=== PATIENT | female | born 1965 | race Caucasian/White ===

== ENCOUNTER 2017-02-06 19:02 | Observation (INO) | payer OTHER ==
--- NOTE | 2017-02-06 19:09 | EDPHY ---
H & P Time Seen by Provider: 02/06/17 19:08 HPI/ROS: Chief complaint. Dizziness, vertigo HPI. 51-year-old female with sudden onset of dizziness vertigo and trouble walking. She had blurry vision and some diaphoresis. This began after taking daughters doxycycline because she was sick. 2 hours later her brain felt weird and she developed the blurry vision. She then had diaphoresis nausea vomiting. Her dizziness is worse with standing or head movement. No similar symptoms previously. She recently found out she had high blood pressure at a health fair. No treatment for this so far. ROS Constitutional. Dizziness Eyes. Blurry vision ENT. no sore throat, no nasal drainage Cardiovascular. no chest pain Respiratory. no shortness of breath, no cough Abdominal. Nausea and vomiting . no problems urinating MS. no calf pain/swelling, no neck/back pain, no joint pain Skin. Diaphoresis Lymph. no swollen glands Neuro. Dizziness Past Medical/Surgical History: Untreated hypertension. Social History: Single, nonsmoker, 3-6 alcoholic beverages per day Physical Exam: General Appearance: Alert well-developed female moderate distress vital signs significant for blood pressure 215/115 Eyes: Pupils equal and round no pallor or injection. ENT, Mouth: Mucous membranes are moist. Respiratory: There are no retractions, lungs are clear to auscultation. Cardiovascular: Regular rate and rhythm. Gastrointestinal: Abdomen is soft and nontender, no masses, bowel sounds normal. Neurological: Awake and alert, sensory and motor exams grossly normal. Skin: Warm and dry, no rashes. Musculoskeletal: Neck is supple nontender. Extremities symmetrical, full range of motion. Psychiatric: Patient is oriented X 3, there is no agitation. Constitutional: Initial Vital Signs Temperature (C) 36.6 C 02/06/17 19:12 Heart Rate 88 02/06/17 19:12 Respiratory Rate 15 02/06/17 19:12 Blood Pressure 215/115 H 02/06/17 19:12 O2 Sat (%) 96 02/06/17 19:12 O2 Delivery Mode Room Air Allergies/Adverse Reactions: No Known Allergies Allergy (Unverified 02/06/17 19:14) Home Medications: Medication Instructions Recorded Doxycycline Monohydrate 150 mg PO DAILY 02/06/17 Medical Decision Making - Diagnostics EKG Interpretation: EKG interpreted by me shows normal sinus rhythm with normal interval and axis. QRS is normal there is no significant ST elevation or depression. No arrhythmia. Rate 73 Imaging Results: Imaging Impressions Chest X-Ray 02/06/17 19:27 IMPRESSION: No evidence for acute cardiopulmonary abnormality. Head CT 02/06/17 19:27 Impression: Question mild atrophy. No evidence for acute intracranial abnormality. Results called and discussed with Kraig Urbano M.D., on February 06, 2017 at 2047 hours. One-view chest x-ray interpreted by me is normal Procedures: IV normal saline, monitor. Zofran meclizine Intravenous labetalol. Oral Norvasc ED Course/Re-evaluation: 8:05 p.m. and blood pressure is 175/105 Re-evaluation 10:30 p.m. patient is not able to walk unassisted. She definitely fall risk. Her blood pressure currently is 158/102. I have consulted and discussed case with Dr. Ward, hospitalist, who agrees to the admission Differential Diagnosis: Uncontrolled hypertension. I considered intracranial bleeding. No evidence for acute coronary syndrome. - Data Points Laboratory Results: Laboratory Results 02/06/17 19:00 02/06/17 19:00 02/06/17 02/06/17 19:00 19:00 WBC 8.33 10^3/uL 10^3/uL (3.80-9.50) RBC 4.45 10^6/uL 10^6/uL (4.18-5.33) Hgb 14.2 g/dL g/dL (12.6-16.3) Hct 42.1 % % (38.0-47.0) MCV 94.6 fL fL (81.5-99.8) MCH 31.9 pg pg (27.9-34.1) MCHC 33.7 g/dL g/dL (32.4-36.7) RDW 11.6 % % (11.5-15.2) Plt Count 251 10^3/uL 10^3/uL (150-400) MPV 8.9 fL fL (8.7-11.7) Neut % (Auto) 86.9 % H % (39.3-74.2) Lymph % (Auto) 8.9 % L % (15.0-45.0) Russell % (Auto) 3.5 % L % (4.5-13.0) Eos % (Auto) 0.0 % L % (0.6-7.6) Baso % (Auto) 0.2 % L % (0.3-1.7) Nucleat RBC Rel Count 0.0 % % (0.0-0.2) Absolute Neuts (auto) 7.24 10^3/uL H 10^3/uL (1.70-6.50) Absolute Lymphs (auto) 0.74 10^3/uL L 10^3/uL (1.00-3.00) Absolute Monos (auto) 0.29 10^3/uL L 10^3/uL (0.30-0.80) Absolute Eos (auto) 0.00 10^3/uL L 10^3/uL (0.03-0.40) Absolute Basos (auto) 0.02 10^3/uL 10^3/uL (0.02-0.10) Absolute Nucleated RBC 0.00 10^3/uL 10^3/uL (0-0.01) Immature Gran % 0.5 % % (0.0-1.1) Immature Gran # 0.04 10^3/uL 10^3/uL (0.00-0.10) Sodium 139 mEq/L mEq/L (134-144) Potassium 3.8 mEq/L mEq/L (3.5-5.2) Chloride 100 mEq/L mEq/L (97-110) Carbon Dioxide 22 mEq/l mEq/l (22-31) Anion Gap 17 mEq/L H mEq/L (8-16) BUN 15 mg/dL mg/dL (7-23) Creatinine 0.7 mg/dL mg/dL (0.6-1.0) Estimated GFR > 60 Glucose 139 mg/dL H mg/dL (70-100) Calcium 9.8 mg/dL mg/dL (8.5-10.4) Total Bilirubin 0.9 mg/dL mg/dL (0.1-1.4) Conjugated Bilirubin 0.6 mg/dL H mg/dL (0.0-0.5) Unconjugated Bilirubin 0.3 mg/dL mg/dL (0.0-1.1) AST 36 IU/L IU/L (14-46) ALT 44 IU/L IU/L (9-52) Alkaline Phosphatase 67 IU/L IU/L (38-126) Troponin I < 0.012 ng/mL ng/mL (0-0.034) NT-Pro-B Natriuret Pep 102 pg/mL pg/mL (0-125) Total Protein 8.3 g/dL H g/dL (6.3-8.2) Albumin 5.1 g/dL H g/dL (3.5-5.0) Ethyl Alcohol < 10 mg/dL mg/dL (0-10) Medications Given: Discontinued Medications Amlodipine Besylate (Norvasc) 10 mg PO EDNOW ONE Stop: 02/06/17 20:53 Last Admin: 02/06/17 21:17 Dose: 10 mg Labetalol HCl (Labetalol Hcl) 20 mg IVP EDNOW ONE Stop: 02/06/17 19:29 Last Admin: 02/06/17 19:50 Dose: 20 mg Labetalol HCl (Labetalol Hcl) 20 mg IVP EDNOW ONE Stop: 02/06/17 20:43 Last Admin: 02/06/17 20:50 Dose: 20 mg Lorazepam (Ativan Injection) 1 mg IVP EDNOW ONE Stop: 02/06/17 20:51 Last Admin: 02/06/17 20:53 Dose: 1 mg Meclizine HCl (Meclizine Hcl) 25 mg PO EDNOW ONE Stop: 02/06/17 19:28 Last Admin: 02/06/17 19:43 Dose: 25 mg Ondansetron HCl (Zofran) 4 mg IVP EDNOW ONE Stop: 02/06/17 19:28 Last Admin: 02/06/17 19:43 Dose: 4 mg Departure - Departure Disposition: [facility] In[facility] Acute Clinical Impression: Vertigo, Hypertensive urgency Condition: Fair
--- NOTE | 2017-02-06 19:21 | CPEKG ---
Heart Rate: 73 RR Interval: 822 P-R Interval: 168 QRSD Interval: 88 QT Interval: 404 QTC Interval: 446 P [place]: 62 QRS [place]: 34 T Wave [place]: 28 EKG Severity - NORMAL ECG - EKG Impression: SINUS RHYTHM Electronically Signed By: Kraig Urbano 07-Feb-2017 00:10:45
[2017-02-06] MEDS ORDERED: MECLIZINE HCL 25 MG TAB PO ONE (19:27)
[2017-02-06] MEDS ORDERED: ONDANSETRON 4 MG/2 ML VIAL IVP ONE (19:27)
[2017-02-06] MEDS ORDERED: LABETALOL HCL 50 MG/10 ML SYR IVP ONE ×2 (19:28→20:42)
[2017-02-06 19:41] LABS: % IMMATURE GRANULYOCYTES 0.5 % (0.0-1.1); ABSOLUTE IMMATURE GRANULOCYTES 0.04 10^3/uL (0.00-0.10); ADD DIFF? NO; ADD MORPH? NO; ADD SCAN? NO; ATYPICAL LYMPHOCYTE FLAG 0 (0-99); FRAGMENT RBC FLAG 0 (0-99); HEMATOCRIT 42.1 % (38.0-47.0); HEMOGLOBIN 14.2 g/dL (12.6-16.3); LEFT SHIFT FLG 0 (0-99); LIPEMIA HEMOLYSIS FLAG 80 (0-99); MEAN CELL HEMOGLOBIN 31.9 pg (27.9-34.1); MEAN CELL HEMOGLOBIN CONCENTR. 33.7 g/dL (32.4-36.7); MEAN CELL VOLUME 94.6 fL (81.5-99.8); MEAN PLATELET VOLUME 8.9 fL (8.7-11.7); PLATELET CLUMPS FLAG 10 (0-99); PLATELET COUNT 251 10^3/uL (150-400); RED BLOOD CELL COUNT 4.45 10^6/uL (4.18-5.33); RED CELL DISTRIBUTION WIDTH 11.6 % (11.5-15.2)
[2017-02-06 19:43] LABS: ALANINE AMINOTRANSFERASE 44 IU/L (9-52); ALBUMIN 5.1 g/dL (3.5-5.0); ALKALINE PHOSPHATASE 67 IU/L (38-126); ANION GAP 17 mEq/L (8-16); ASPARTATE AMINOTRANSFERASE 36 IU/L (14-46); BILIRUBIN,TOTAL 0.9 mg/dL (0.1-1.4); BILIRUBIN-CONJUGATED 0.6 mg/dL (0.0-0.5); BILIRUBIN-UNCONJUGATED 0.3 mg/dL (0.0-1.1); CALCIUM 9.8 mg/dL (8.5-10.4); CARBON DIOXIDE 22 mEq/l (22-31); CHLORIDE 100 mEq/L (97-110); CREATININE 0.7 mg/dL (0.6-1.0); ETHANOL SERUM < 10 mg/dL (0-10); GLOMERULAR FILTRATION RATE > 60; GLUCOSE 139 mg/dL (70-100); POTASSIUM 3.8 mEq/L (3.5-5.2); SODIUM 139 mEq/L (134-144); TOTAL PROTEIN 8.3 g/dL (6.3-8.2)
[2017-02-06 19:53] LABS: TROPONIN I < 0.012 ng/mL (0-0.034)
[2017-02-06] MEDS ORDERED: LORazepam 2 MG/ML INJ ONE (20:49)
[2017-02-06] MEDS ORDERED: LORazepam 2 MG/ML INJ IVP ONE (20:50)
[2017-02-06] MEDS ORDERED: ONDANSETRON DISINTEGRATING 4 MG TAB PO PRN (23:25)
[2017-02-06] MEDS ORDERED: ACETAMINOPHEN 325 MG TAB PO PRN (23:25)
[2017-02-06] MEDS ORDERED: ONDANSETRON 4 MG/2 ML VIAL IVP PRN (23:25)
[2017-02-06] MEDS: MECLIZINE HCL 25 MG TAB PO PRN (23:44)
[2017-02-06] MEDS: LORazepam 1 MG TAB PO PRN (23:44)
--- NOTE | 2017-02-07 01:04 | GHP ---
[f rep st] HISTORY AND PHYSICAL DATE OF ADMISSION: 02/06/2017 HISTORY OF PRESENT ILLNESS: The patient is a pleasant 51-year-old female with a history of hyperten laura who does not get much medical care. Presents to the hospital with what sounds like some dizzin ess and an episode of vomiting. She had been told in the past at a health fair she had high blood p ressure. She takes no medicines for it. She does not see a doctor regularly. However, states she became nauseated. She vomited at work. She did not feel well. She had general malaise. She also felt dizzy, as if the room were spinning. She took some of her daughter's doxycycline thinking this would help her, and then ultimately at work she was dizzy and uncomfortable and had the vomiting, s o she came to the hospital where she was found to be hypertensive with blood pressures as high as 21 5/115. She receive some labetalol and Norvasc and that came down. She continued to be unsteady on her feet with a difficult gait. She received meclizine in the emergency department. She denies slu rred speech, difficulty with finding words, weakness and numbness in 1 part of her body versus [facility] er. She notes that she has been struggling with alcohol a bit in the sense that she is drinking more mercy n she would like, 3-6 drinks per day. Her last drink was recently. She does not suspect that she i s in alcohol withdrawal at this time. She does have a tremor. She was not tachycardic on presentat ion. No urgency, frequency, dysuria. REVIEW OF SYSTEMS: Complete 10-point review of systems conducted, negative except as in the HPI. PAST MEDICAL HISTORY: 1. Hypertension. 2. Alcohol use. ALLERGIES: No known drug allergies. HOME MEDICATIONS: None. SOCIAL HISTORY: She works as an operations administrative assistant. She has a daughter. She lives locally. Alcohol as in the HPI. FAMILY HISTORY: Daughter has acne. PHYSICAL EXAM: VITAL SIGNS: Presenting vitals: Temp 36.6, blood pressure 215/115, pulse 80, breat sravani 15 times a minute, 96% on room air. GENERAL: No acute distress. HEENT: Sclerae anicteric. Oropharynx clear. Mucous membranes are moist. NECK: Supple without lymphadenopathy or JVD. LUNGS : Clear to auscultation bilaterally. HEART: S1, S2. Not tachycardic without murmurs. ABDOMEN: Soft, nontender, nondistended. LOWER EXTREMITIES: Without edema. Calves nontender. SKIN: Withou t rash. NEUROLOGIC: Exam shows some lateral nystagmus, left greater than right. There is a tremor . There is no word-finding difficulty. Speech is fluent. She is able to repeat objects and compre hend. EXTREMITIES: Her upper extremity and lower extremity strength and sensation are 5/5 bilatera lly. I did not do cerebellar testing. LABS: White count 8.3, hematocrit 42, platelets are 251,000. Sodium 139, potassium 3.8, chloride 1 00, bicarb 22, BUN 15, creatinine 0.7, glucose 139. LFTs are essentially normal. Modestly elevated conjugated bilirubin. Troponin is less than 0.012. Alcohol level is normal. Chest x-ray, interpreted by me, shows no acute cardiopulmonary disease. Head CT shows atrophy but otherwise no acute illness or findings. EKG, interpreted by me, shows sinus at 73 with normal axis and intervals and no ST or T-wave changes . Normal EKG. I have discussed the case Dr. Kraig Urbano. ASSESSMENT/PLAN: 51-year-old female with likely acute vertigo. 1. Vertigo. I suspect this is peripheral vertigo as evidenced by the nystagmus, vomiting, nausea, unsteadiness on her feet. I have given her meclizine and also give her a milligram of Ativan at thi s time. I have considered a stroke and I will review that next. 2. Question cerebrovascular accident. Some episodes of vertigo can be accounted for by stroke. Ho wever, I think that the acute onset associated vomiting are a relatively low risk factor profile for stroke. We can go ahead and treat this is peripheral vertigo. Certainly, if her symptoms persist, we may consider some advanced imaging. Will have PT and OT see her. 3. Hypertension. She probably certainly has underlying hypertension, probably essential. There ma y be a component of alcohol contributing to her hypertension. I started her on Norvasc 2.5 in the [facility]. 4. Question alcohol withdrawal. The patient is not tachycardic. She is alert. It sounds like her drinking is heavier than it is healthy but maybe not at risk for alcohol withdrawal. Will follow. 5. Tremor. I suspect this is secondary to alcohol use versus essential tremor. 6. Prophylaxis. Pharmacologic prophylaxis indicated if in the hospital longer than 24 hours which I do not anticipate. DISPOSITION: Observation [facility]. /[id number]/MODL
[2017-02-07] MEDS: LORazepam 1 MG TAB PO PRN ×2 (05:31→09:45)
[2017-02-07 08:33] VITALS: TEMP 97.3
[2017-02-07] MEDS: MECLIZINE HCL 25 MG TAB PO PRN (08:44)
--- NOTE | 2017-02-07 11:41 | PDDCSUM ---
Discharge Summary Discharge Summary: Dates of service 02/06-02/07/17 Consultations: none Procedures performed: head CT Hospital course by problem: # dizzyness: not clearly consistent with vertigo, sxs improved significantly overnight--she is ambulating, not nauseated and tolerating regular food. Patient states she has had this in the past when she has been anxious but that this time it is worse. PT/OT evaluated. Head CT negative. Labs unremarkable. Does have hx of etoh abuse as well and etoh w/d appears to be starting and likely contributing. # HTN: told 2 months ago she has HTN and failed to f/u for treatment, started on amlodipine and will dc her home on same. Instructed her that f/u is very important and she agrees to establish care with a pcp # etoh abuse and w/d: beginning to have tremulousness prior to dc and does not plan to quit drinking, given ativan for her anxiety as well. Recommending cessation or at least cutting down # anxiety/ptsd: states that her sxs are most c/w her bouts of anxiety she has had in the past, given short course of ativan to manage her sxs for the next several days but instructed patient that f/u with psychiatry is necessary for ongoing mgmt. She states she sees a counselor already and will look into options for psychiatry as well DC home Meds: see EHR F/u needed for ongoing BP management, anxiety mgmt. She has no pcp and needs a psychiatrist as well, she was counseled on how to find providers that will work with her insurance plan. > 35 minutes spent in dc more than half in face to face counseling and coordination of care.
[2017-02-07 12:37] VITALS: BP 156/105; PULSE 88; RESP 16; O2SAT 98
== END 2017-02-07 13:20 | disposition home or self-care (01) ==
LOC: EDUNIT# → F1N 22:49
PROVIDERS: ADMIT Internal Medicine; ATTEND Internal Medicine
DX: R42 Dizziness and giddiness (principal); R61 Generalized hyperhidrosis; R11.2 Nausea with vomiting, unspecified; R25.1 Tremor, unspecified; R03.0 Elevated blood-pressure reading, without diagnosis of hypertension; F41.9 Anxiety disorder, unspecified; Z72.89 Other problems related to lifestyle
CPT/HCPCS: 70450; 93005; 97161; 97165; G0378; 96374; G0480; J2060; J2405

== ENCOUNTER 2017-03-05 14:43 | Emergency (ER) | payer OTHER ==
[2017-03-05] MEDS ORDERED: DIAZEPAM 10 MG/2 ML SYR ONE (16:51)
--- NOTE | 2017-03-05 17:03 | CPEKG ---
Heart Rate: 83 RR Interval: 723 P-R Interval: 172 QRSD Interval: 84 QT Interval: 368 QTC Interval: 433 P [place]: 62 QRS [place]: 28 T Wave [place]: 22 EKG Severity - NORMAL ECG - EKG Impression: SINUS RHYTHM Electronically Signed By: Kyle Meadows 05-Mar-2017 23:14:56
--- NOTE | 2017-03-05 17:23 | EDPHY ---
H & P Time Seen by Provider: 03/05/17 16:41 HPI/ROS: HPI Anxiety, food reaction. 51-year-old female by private vehicle with her boss. Patient reports that on February 06 she was at work. She ate chili and she took 1, 100 mg tablet doxycycline which she obtained from her daughter because she thought she was getting sick. She suddenly developed blurry vision, vertigo and muscle weakness throughout her body. She came to the emergency department that day by ambulance. She had a thorough workup which was unremarkable. She was admitted overnight and then discharged the next day with a prescription for anti anxiety medication which she does not know. She then followed up with her primary care physician regarding treatment of her hypertension. She has been placed on a antihypertensive which she does not know the name of and she does not take on a regular basis. She reports that again today she was eating lunch had some spicy food in suddenly felt very anxious had a little bit of blurring in her vision tingling in her hands and her feet bilaterally and a sensation of weakness as she did during her private episode but not as severe. Her boss from her job brought her to the emergency department for evaluation. She states that other than feeling a little anxious she feels much better at this time. ROS: Constitutional: No fever, no chills. As above. Eyes: No discharge. No changes in vision. ENT: No sore throat. No nasal congestion or rhinorrhea. Respiratory: No cough. No shortness of breath. Cardiac: No chest pain, no palpitations. Gastrointestinal: No abdominal pain, no vomiting, no diarrhea. Genitourinary: No hematuria. No dysuria or increased frequency with urination. Musculoskeletal: No back pain. No neck pain. No myalgias or arthralgias. Skin: No rashes. Neurological: No headache. No focal weakness. As above. Past medical history: Hypertension. As above. Her primary care physician is Dr. Richard. Social history: Physical Exam: General Appearance: Alert, no distress. This patient is responding to questions appropriately and in full sentences. This patient appears well- hydrated and well-nourished. Eyes: Pupils equal and round no pallor or injection. No lid edema, erythema or injection. No nystagmus. ENT, Mouth: Mucous membranes are moist. The pharyngeal tissues are unremarkable. No edema or swelling. No asymmetry suggestive of abscess. No erythema or exudates. Respiratory: There are no retractions, lungs are clear to auscultation with good air movement bilaterally. Cardiovascular: Regular rate and rhythm. No murmur. Gastrointestinal: Abdomen is soft and nontender, no masses, bowel sounds normal. No focal tenderness at McBurney's point. No Villanueva sign. Neurological: Motor sensory function is grossly intact. Cranial nerves are normal. Gait is normal. Skin: Warm and dry, no rashes. Musculoskeletal: Neck is supple and nontender. Extremities are symmetrical. All joints range without pain or impingement. Psychiatric: No agitation. No depression. Database: EKG: EKG time is 5:02 p.m.; EKG shows a narrow complex normal sinus rhythm with a ventricular rate of 83. The CT, QRS, QT intervals are within normal limits. There are no ST-T wave changes indicative of ischemic or injury pattern. No evidence of right heart strain. Interpreted by me. Imaging: Procedures: Emergency department course: IV placed. Vital signs reviewed. Patient hypertensive at 175/120 on my initial evaluation. She is afebrile. Vital signs are otherwise within normal limits. IV was started. She requested some medication for anxiety. She was given 5 mg of IV Valium. Chem 7 was obtained and EKG performed. 5:35 p.m., patient re-evaluated. Resting comfortably at this time. She states that her anxiety has resolved with the above-noted medications. Results of her chemistry panel as well as EKG were discussed with her. She has remained hypertensive in the emergency department. I discussed the importance of taking her antihypertensive medication as prescribed by her primary care physician. She stated that she would do this. She feels comfortable going home at this time and I feel she is safe for discharge. Follow-up and return to emergency department precautions have been discussed with her. All of her questions were answered. She was discharged in good condition. Differential Diagnosis: The differential diagnosis on this patient includes but is not limited to anxiety reaction. CVA, TIA, MS, myasthenia gravis, Guillain-[place] syndrome unlikely. This represents a partial list of diagnoses considered. These considerations are based on history, physical exam, past history, reassessment and diagnostic testing. Smoking Status: Former smoker Constitutional: Initial Vital Signs Temperature (C) 36.8 C 03/05/17 15:15 Heart Rate 93 03/05/17 15:15 Respiratory Rate 18 03/05/17 15:15 Blood Pressure 200/135 H 03/05/17 15:15 O2 Sat (%) 98 03/05/17 15:15 O2 Delivery Mode Room Air Allergies/Adverse Reactions: No Known Allergies Allergy (Unverified 02/06/17 19:14) Home Medications: Medication Instructions Recorded Acetaminophen [Tylenol 325mg (*)] 650 mg PO Q4HRS PRN #0 tab 02/07/17 LORazepam [Ativan (*)] 1 mg PO TID PRN #10 tab 02/07/17 Meclizine HCl [Meclizine HCl 25 mg 25 mg PO BID PRN #0 tab 02/07/17 (RX,OTC)] amLODIPine BESYLATE [Norvasc 2.5 5 mg PO DAILY #30 tab 02/07/17 mg (*)] Medical Decision Making - Data Points Laboratory Results: Laboratory Results 03/05/17 16:50 Departure - Departure Disposition: Home, Routine, Self-Care Clinical Impression: Anxiety reaction, Uncontrolled hypertension Condition: Good Instructions: Hypertension (ED), Anxiety (ED) Additional Instructions: Read and follow provided instructions. Follow-up with your primary care physician in 1-2 days for re-evaluation. If your blood pressure medication is making her feel fatigued. There are other options please discuss with her primary care physician. Take medication as prescribed. Return to the emergency department for return of symptoms or other serious concerns. Referrals: KALA RICHARD [Other] - As per Instructions
[2017-03-05 17:35] LABS: ANION GAP 12 mEq/L (8-16); CALCIUM 9.7 mg/dL (8.5-10.4); CARBON DIOXIDE 23 mEq/l (22-31); CHLORIDE 102 mEq/L (97-110); CREATININE 0.6 mg/dL (0.6-1.0); GLOMERULAR FILTRATION RATE > 60; GLUCOSE 90 mg/dL (70-100); SODIUM 137 mEq/L (134-144)
[2017-03-05 18:16] VITALS: BP 185/136; PULSE 86; RESP 18; TEMP 97.9; O2SAT 99
== END 2017-03-05 18:16 | disposition home or self-care (01) ==
DX: F41.9 Anxiety disorder, unspecified (principal); I10 Essential (primary) hypertension; Z87.891 Personal history of nicotine dependence